=== PATIENT | female | born 1995 | race Caucasian/White ===

== ENCOUNTER 2021-02-26 12:40 | Emergency (ER) | payer BC ==
[~2021-02-26] VITALS: Ht 165.1 cm; Wt 100.0 kg
[2021-02-26] MEDS ORDERED: ELAVIL100 MG PO (13:01)
[2021-02-26] MEDS ORDERED: NUVARING VAG RING VG (13:02)
[2021-02-26] MEDS ORDERED: WELLBUTRIN 75MG75 MG PO (13:02)
[2021-02-26 13:04] VITALS: BP 121/85; PULSE 117; TEMP 97.8
[2021-02-26] MEDS ORDERED: NORCO 325 MG-51 TAB PO (14:42)
[2021-02-26] MEDS ORDERED: CEPHALEXIN500 M1 PO (14:42)
== END 2021-02-26 14:50 | disposition home or self-care (01) ==
LOC: COL.ER 12:40
DX: S91.341A Puncture wound with foreign body, right foot, initial encounter (principal)